=== PATIENT | male | born 1955 | race Caucasian/White ===

== ENCOUNTER 2025-03-06 21:23 | Inpatient (IN) | payer OTHER, MEDICARE ==
[~2025-03-06] VITALS: Ht 165.1 cm; Wt 74.4 kg
[2025-03-06 21:29] VITALS: O2SAT 98
[2025-03-06] MEDS ORDERED: HYDROMORPHONE HCL/PF 2MG/ML INJ IV ONE (22:00)
[2025-03-06 22:23] LABS: BASOPHILS % 0.6 % (0.0-2.0); EOSINOPHILS % 3.3 % (0.0-5.0); HEMATOCRIT. 38.0 % (42.0-52.0); HEMOGLOBIN. 13.1 g/dL (14.0-18.0); LYMPHOCYTES % 28.8 % (20.0-50.0); MEAN PLATELET VOLUME 8.7 fl (7.4-10.4); MONOCYTES % 8.9 % (2.0-8.0); NEUTROPHILS % 58.4 % (40.0-76.0); PLATELET 232 x1000/uL (130-400); RED BLOOD CELL COUNT 4.14 mill/uL (4.7-6.1); RED CELL DISTRIBUTION WIDTH 12.8 % (11.6-14.6)
[2025-03-06] MEDS: SODIUM CHLORIDE 0.9% 1,000 ML IV ONE (22:28)
[2025-03-06] MEDS: HYDROMORPHONE HCL/PF 1MG/ML INJ IV NR (22:28)
[2025-03-06] MEDS: ONDANSETRON HCL 4MG/2ML INJ IV ONE (22:28)
[2025-03-06 22:33] LABS: INR 1.0
[2025-03-06 22:38] LABS: CREATININE 1.1 mg/dL (0.6-1.3); UREA NITROGEN BLOOD 20 mg/dL (9-23)
[2025-03-06 22:39] LABS: TROPONIN I HIGH SENSITIVITY 25 ng/L (3.0-53)
[2025-03-07] MEDS ORDERED: HYDROCODONE/ACETAMINOPHEN 5/325MG TABLET PO PRN (01:15)
[2025-03-07] MEDS ORDERED: ZOLPIDEM TARTRATE 5MG TABLET PO PRN (01:15)
[2025-03-07] MEDS ORDERED: NALOXONE HCL 0.4MG/ML VIAL IV PRN (01:15)
[2025-03-07] MEDS ORDERED: MAGNESIUM/ALUMINUM HYDROXIDE/SIMETHICONE 30ML UDC PO PRN (01:15)
[2025-03-07] MEDS ORDERED: ACETAMINOPHEN 325MG TABLET PO PRN (01:15)
[2025-03-07] MEDS ORDERED: CLONIDINE 0.1MG TABLET PO PRN (01:15)
[2025-03-07] MEDS ORDERED: ONDANSETRON HCL 4MG/2ML INJ IV PRN ×2 (01:15→20:00)
[2025-03-07 03:00] VITALS: BP 118/69; PULSE 62; RESP 18; TEMP 36.4736
[2025-03-07 04:00] VITALS: BP 115/71; PULSE 64; RESP 16; TEMP 36.9; O2SAT 98
[2025-03-07] MEDS: SODIUM CHLORIDE 0.9% 1,000 ML IV SCH (04:25)
[2025-03-07 08:00] VITALS: BP_SYST 121; BP_SYST 131; BP_DIAS 75; PULSE 65; RESP 19; TEMP 36.7; O2SAT 96; O2SAT 97
[2025-03-07] MEDS: PANTOPRAZOLE SODIUM 40 MG/VIAL IV SCH (09:34)
[2025-03-07] MEDS: MORPHINE SULFATE 4 MG/ML INJ (FOR IV/IM USE) IV PRN (09:34)
[2025-03-07 12:00] VITALS: BP 131/75; PULSE 65; RESP 19; TEMP 36.7; O2SAT 96
[2025-03-07] MEDS ORDERED: BENA-8 PO (12:36)
[2025-03-07] MEDS ORDERED: ATOR40TA70 MT (12:37)
[2025-03-07] MEDS ORDERED: METO25TA6 PO (12:38)
[2025-03-07] MEDS: ENOXAPARIN 40MG/0.4ML SYR SUBCUT SCH (13:15)
[2025-03-07] MEDS: LISINOPRIL 20MG TABLET PO SCH (14:00)
[2025-03-07] MEDS: METHOCARBAMOL 500MG TABLET PO PRN (14:00)
[2025-03-07 16:00] VITALS: BP 149/62; PULSE 69; RESP 18; TEMP 36.6; O2SAT 96
[2025-03-07] MEDS ORDERED: LIDOCAINE HCL/EPINEPHRINE 1%-EPI 1:100,000 20ML VIAL ONE (16:29)
[2025-03-07] MEDS ORDERED: VANCOMYCIN HCL 1GM VIAL ONE (16:30)
[2025-03-07] MEDS ORDERED: ACETAMINOPHEN 1000MG/100ML 100 ML IV ONE (19:11)
[2025-03-07] MEDS ORDERED: PROPOFOL 200MG/20ML VIAL IV ONE (19:16)
[2025-03-07] MEDS ORDERED: LIDOCAINE HCL 1% 10 MG/ML 10ML VIAL ONE (19:18)
[2025-03-07] MEDS ORDERED: ONDANSETRON HCL 4MG/2ML INJ ONE ×2 (19:18→19:35)
[2025-03-07] MEDS ORDERED: CEFAZOLIN SODIUM 1000MG/VIAL ONE (19:18)
[2025-03-07] MEDS ORDERED: METOCLOPRAMIDE HCL 10MG/2ML VIAL ONE (19:18)
[2025-03-07] MEDS ORDERED: FENTANYL CITRATE/PF 50MCG/ML 2ML VIAL ONE (19:20)
[2025-03-07] MEDS ORDERED: HYDROMORPHONE HCL/PF 1MG/ML INJ ONE (19:52)
[2025-03-07] MEDS ORDERED: HYDROMORPHONE HCL/PF 1MG/ML INJ IV PRN (20:00)
[2025-03-07] MEDS ORDERED: ESMOLOL HCL 10MG/ML 10ML VIAL IV ONE (20:29)
[2025-03-07] MEDS ORDERED: METOPROLOL TARTRATE 5MG/5ML VIAL IV ONE (20:29)
[2025-03-07] MEDS ORDERED: CEFAZOLIN SODIUM 2000MG/VIAL IJ SCH (22:00)
[2025-03-08] VITALS: BP 99/59; PULSE 82; RESP 18; TEMP 36.4; O2SAT 100
[2025-03-08 04:00] VITALS: BP 112/68; PULSE 77; RESP 18; TEMP 36.7; O2SAT 97
[2025-03-08 07:38] LABS: HEMATOCRIT. 31.2 % (42.0-52.0); HEMOGLOBIN. 10.9 g/dL (14.0-18.0); MEAN PLATELET VOLUME 8.9 fl (7.4-10.4); PLATELET 183 x1000/uL (130-400); RED BLOOD CELL COUNT 3.38 mill/uL (4.7-6.1); RED CELL DISTRIBUTION WIDTH 13.2 % (11.6-14.6)
[2025-03-08 07:55] LABS: CREATININE 1.0 mg/dL (0.6-1.3)
[2025-03-08 07:56] LABS: UREA NITROGEN BLOOD 13 mg/dL (9-23)
[2025-03-08 08:00] VITALS: BP 116/73; PULSE 81; RESP 20; TEMP 36; O2SAT 99
[2025-03-08] MEDS: METOPROLOL SUCCINATE 25MG ER TABLET PO SCH (09:17)
[2025-03-08 12:00] VITALS: BP 128/72; PULSE 74; RESP 18; TEMP 36.5; O2SAT 100
[2025-03-08 13:40] LABS: BAND% 10.0 % (1.0-6.0); LYMPHOCYTES % MANUAL 8.0 % (20.0-50.0); MONOCYTES % MANUAL 12.0 % (2.0-8.0); NEUTROPHILS % MANUAL 70.0 % (45.0-75.0); PLATELET ESTIMATE NORMAL
[2025-03-08 16:00] VITALS: BP 113/64; PULSE 78; RESP 19; TEMP 37; O2SAT 97
[2025-03-08 20:00] VITALS: BP 112/69; PULSE 89; RESP 18; TEMP 36.9; O2SAT 97
[2025-03-08] MEDS: ATORVASTATIN CALCIUM 40MG TABLET PO SCH (21:07)
[2025-03-09] VITALS: BP 122/68; PULSE 84; RESP 18; TEMP 36.7; O2SAT 98
[2025-03-09 04:00] VITALS: BP 115/61; PULSE 95; RESP 18; TEMP 36.8; O2SAT 96
[2025-03-09 08:00] VITALS: BP 116/68; PULSE 82; RESP 18; TEMP 37.8; O2SAT 95
[2025-03-09] MEDS: ENOXAPARIN 40MG/0.4ML SYR SUBCUT SCH (09:11)
[2025-03-09 10:04] LABS: BASOPHILS % 0.3 % (0.0-2.0); EOSINOPHILS % 1.7 % (0.0-5.0); HEMATOCRIT. 27.7 % (42.0-52.0); HEMOGLOBIN. 9.5 g/dL (14.0-18.0); LYMPHOCYTES % 15.1 % (20.0-50.0); MEAN PLATELET VOLUME 8.9 fl (7.4-10.4); MONOCYTES % 10.3 % (2.0-8.0); NEUTROPHILS % 72.6 % (40.0-76.0); PLATELET 172 x1000/uL (130-400); RED BLOOD CELL COUNT 3.01 mill/uL (4.7-6.1); RED CELL DISTRIBUTION WIDTH 13.1 % (11.6-14.6)
[2025-03-09 10:17] LABS: CREATININE 0.9 mg/dL (0.6-1.3); UREA NITROGEN BLOOD 12 mg/dL (9-23)
[2025-03-09 12:00] VITALS: BP 109/60; PULSE 84; RESP 18; TEMP 36.7; O2SAT 96
[2025-03-09 16:00] VITALS: BP 115/59; PULSE 96; RESP 18; TEMP 37.7; O2SAT 99
[2025-03-09 20:00] VITALS: BP 126/70; PULSE 87; RESP 17; TEMP 37.2; O2SAT 98
[2025-03-10] VITALS: BP 125/68; PULSE 93; RESP 16; TEMP 36.9; O2SAT 95
[2025-03-10 04:00] VITALS: BP 115/66; PULSE 79; RESP 15; TEMP 36.8; O2SAT 97
[2025-03-10 08:00] VITALS: BP 122/74; PULSE 86; RESP 18; TEMP 36.8; O2SAT 96
[2025-03-10 08:43] LABS: BASOPHILS % 0.4 % (0.0-2.0); EOSINOPHILS % 3.4 % (0.0-5.0); HEMATOCRIT. 26.2 % (42.0-52.0); HEMOGLOBIN. 9.1 g/dL (14.0-18.0); LYMPHOCYTES % 15.0 % (20.0-50.0); MEAN PLATELET VOLUME 8.6 fl (7.4-10.4); MONOCYTES % 10.1 % (2.0-8.0); NEUTROPHILS % 71.1 % (40.0-76.0); PLATELET 184 x1000/uL (130-400); RED BLOOD CELL COUNT 2.85 mill/uL (4.7-6.1); RED CELL DISTRIBUTION WIDTH 12.8 % (11.6-14.6)
[2025-03-10 09:07] LABS: CREATININE 0.8 mg/dL (0.6-1.3)
[2025-03-10 09:08] LABS: UREA NITROGEN BLOOD 13 mg/dL (9-23)
[2025-03-10 12:00] VITALS: BP 115/71; PULSE 84; RESP 18; TEMP 36.8; O2SAT 98
[2025-03-10] MEDS ORDERED: POLYETHYLENE GLYCOL 3350 (17GM) 1 DOSE PACK PO SCH (12:00)
[2025-03-10] MEDS: DOCUSATE SODIUM 100MG CAPSULE PO SCH (12:45)
[2025-03-10] MEDS: POLYETHYLENE GLYCOL 3350 (17GM) 1 DOSE PACK PO SCH (12:47)
[2025-03-10 16:00] VITALS: BP 104/68; PULSE 66; RESP 18; TEMP 37.3; O2SAT 97
[2025-03-10 20:00] VITALS: BP 122/68; PULSE 84; RESP 20; TEMP 36.5; O2SAT 100
[2025-03-11] VITALS: BP 127/68; PULSE 84; RESP 20; TEMP 36.5; O2SAT 100
[2025-03-11 04:00] VITALS: BP 115/65; PULSE 84; RESP 20; TEMP 37; O2SAT 100
[2025-03-11 08:00] VITALS: BP 120/76; PULSE 88; RESP 18; TEMP 36.1; O2SAT 98
[2025-03-11 10:00] VITALS: BP 122/72; PULSE 81; RESP 16; TEMP 36.1; O2SAT 98
[2025-03-11 16:00] VITALS: BP 104/65; PULSE 89; RESP 17; TEMP 36.5; O2SAT 99
[2025-03-11] MEDS: LACTULOSE 20G/30ML UDC PO SCH (17:30)
[2025-03-11] MEDS: BISACODYL 10MG SUPP PR SCH (17:30)
[2025-03-11 20:00] VITALS: BP 101/63; PULSE 89; RESP 18; TEMP 36.2; O2SAT 98
[2025-03-11] MEDS ORDERED: POLYETHYLENE GLYCOL 3350 (17GM) 1 DOSE PACK PO SCH (21:00)
[2025-03-11] MEDS: DOCUSATE SODIUM 100MG CAPSULE PO SCH (21:47)
[2025-03-12] VITALS: BP 120/80; PULSE 85; RESP 19; TEMP 36.2; O2SAT 99
[2025-03-12 04:00] VITALS: BP 121/81; PULSE 85; RESP 19; TEMP 36.2; O2SAT 99
[2025-03-12 08:00] VITALS: BP 124/77; PULSE 80; RESP 19; TEMP 36.6; O2SAT 97
[2025-03-12 12:00] VITALS: BP 118/66; PULSE 83; RESP 19; TEMP 36.3; O2SAT 98
[2025-03-12 16:00] VITALS: BP 107/67; PULSE 84; RESP 19; TEMP 36.4; O2SAT 97
[2025-03-12 20:00] VITALS: BP 116/67; PULSE 86; RESP 18; TEMP 37.2; O2SAT 98
[2025-03-13] VITALS: BP 127/76; PULSE 81; RESP 20; TEMP 36.3; O2SAT 96
[2025-03-13 04:00] VITALS: BP 118/68; PULSE 78; RESP 20; TEMP 36.2; O2SAT 98
[2025-03-13 08:00] VITALS: BP 118/73; PULSE 83; RESP 19; TEMP 36.4; O2SAT 97
[2025-03-13 12:00] VITALS: BP 101/60; PULSE 83; RESP 19; TEMP 36.4; O2SAT 100
[2025-03-13] MEDS ORDERED: POLY17PO43 PO (13:55)
[2025-03-13] MEDS ORDERED: DOCU-422 PO (13:55)
[2025-03-13] MEDS ORDERED: ENOX40DI8 SUBCUT (13:55)
[2025-03-13 16:00] VITALS: BP 110/62; PULSE 81; RESP 19; TEMP 36.3; O2SAT 98
[2025-03-13 20:00] VITALS: BP 108/63; PULSE 95; RESP 20; TEMP 37.1; O2SAT 97
[2025-03-14] VITALS (7 sets, daily range): BP systolic 102–121; BP diastolic 66–72; PULSE 80–95; RESP 18–20; TEMP 36.3–36.7; O2SAT 96–100
[2025-03-15] VITALS: BP 115/71; PULSE 86; RESP 18; TEMP 36.7; O2SAT 98
[2025-03-15 02:00] VITALS: BP 113/72; PULSE 85; RESP 18; TEMP 37; O2SAT 97
[2025-03-15 04:00] VITALS: BP 113/72; PULSE 85; RESP 18; TEMP 37; O2SAT 97
[2025-03-15 08:00] VITALS: BP 123/68; PULSE 76; RESP 18; TEMP 36.8; O2SAT 97
[2025-03-15 16:00] VITALS: BP 88/57; PULSE 87; RESP 17; TEMP 36.4; O2SAT 97
[2025-03-15] MEDS ORDERED: NALOXONE HCL 0.4MG/ML 1ML VIAL IV PRN (16:30)
[2025-03-15 20:00] VITALS: BP 91/55; PULSE 80; RESP 18; TEMP 36.8; O2SAT 96
[2025-03-16] VITALS: BP 104/67; PULSE 89; RESP 19; TEMP 36.9; O2SAT 96
[2025-03-16] MEDS: HYDROCODONE/ACETAMINOPHEN 5/325MG TABLET PO SCH
[2025-03-16 04:00] VITALS: BP 95/59; PULSE 80; RESP 18; TEMP 36.8; O2SAT 96
[2025-03-16 12:00] VITALS: BP 96/57; PULSE 71; RESP 20; TEMP 36.3; O2SAT 97
[2025-03-17] MEDS ORDERED: HYDROCODONE/ACETAMINOPHEN 7.5/325MG TABLET PO SCH
== END 2025-03-16 16:32 | DRG 482 ==
LOC: ER 21:23 → EDBEDREQTM 03-07 01:14 → EDBEDREQ 03-07 01:14 → ENRESERV 03-07 01:23 → 6EST 03-07 02:07
PROVIDERS: ADMIT Internal Medicine; ATTEND Internal Medicine
PROC: 0QS634Z Reposition Right Upper Femur with Internal Fixation Device, Percutaneous Approach (ICD-10-PCS; principal; 2025-03-07)
DX: S72.141A Displaced intertrochanteric fracture of right femur, initial encounter for closed fracture (principal); W01.0XXA Fall on same level from slipping, tripping and stumbling without subsequent striking against object, initial encounter; D64.9 Anemia, unspecified; M21.70 Unequal limb length (acquired), unspecified site; I12.9 Hypertensive chronic kidney disease with stage 1 through stage 4 chronic kidney disease, or unspecified chronic kidney disease; E78.5 Hyperlipidemia, unspecified; N18.9 Chronic kidney disease, unspecified; Z96.612 Presence of left artificial shoulder joint; F12.90 Cannabis use, unspecified, uncomplicated; M25.552 Pain in left hip; Z79.899 Other long term (current) drug therapy; Y93.K1 Activity, walking an animal; Z88.0 Allergy status to penicillin; Y92.89 Other specified places as the place of occurrence of the external cause
CPT/HCPCS: 36415; 71045; 73502; 73552; 76000; 80048; 84443; 84484; 85025; 86850; 86900; 93005; 93306; 93970; 96361; 96374; 96375; 97110; 97112; 97162; 97166; 97530; 97535; 99291; A4606; A6449; J0690; J1171; J1650; J2003; J2004; J2270; J2405; J2470; J2704; J2765; J3010; J3373; J3490; J7030; C1713; C1769; J0131